=== PATIENT | female | born 1960 | race Caucasian/White ===

== ENCOUNTER 2017-12-06 10:12 | Emergency (ER) | payer BC ==
--- NOTE | 2017-12-06 12:24 | EDM.PDOC ---
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 Painful wt bearing. Left Feet Pain Score (Numeric/FACES): 8 - Related Data Allergies Allergy/AdvReac Type Severity Reaction Status Date / Time acetaminophen [From Vicodin] Allergy Itching Verified 12/06/17 10:34 hydrocodone [From Vicodin] Allergy Itching Verified 12/06/17 10:34 Home Meds: Home Meds . [Unable to Verify Home Med List] 12/06/17 [History] Past Medical History Cardiovascular History: Reports: High Cholesterol, Hypertension [employer] History: Reports: Musculoskeletal History: Reports: Fracture Other Musculoskeletal History: bilateral elbows and wrists Endocrine/Metabolic History: Reports: Diabetes, Type II - Infectious Disease History Infectious Disease History: Reports: Measles - Past Surgical History GI Surgical History: Reports: Appendectomy, Cholecystectomy, Colonoscopy Female Surgical History: Reports: Hysterectomy, Salpingo-Oophorectomy Social & Family History - Tobacco Use Smoking Status *Q: Never Smoker Second Hand Smoke Exposure: No - Caffeine Use Caffeine Use: Reports: Coffee, Soda, Tea - Alcohol Use Days Per Week of Alcohol Use: 0 - Recreational Drug Use Recreational Drug Use: No Review of Systems - Review of Systems Review Of Systems: ROS reveals no pertinent complaints other than HPI. ED EXAM, GENERAL - Physical Exam Exam: See Below Exam Limited By: No Limitations General Appearance: Alert, WD/WN, Mild Distress Extremities: Other (Minimal swelling left lat malleolus, tender there. NVT all intact) Course - Vital Signs Last Recorded V/S: Last Vital Signs Temp 36.3 C 12/06/17 10:40 Pulse 75 12/06/17 10:40 Resp 18 12/06/17 10:40 BP 145/79 H 12/06/17 10:40 Pulse Ox 98 12/06/17 10:40 - Orders/Labs/Meds Orders: Active Orders 24 hr Category Date Time Status Ankle Min 3V Lt [CR] Stat Exams 12/06/17 10:52 Ordered - Radiology Interpretation Free Text/Narrative:: Longitudinal fracture distal fibula visible on one view only. Non displaced Departure - Departure Time of Disposition: 12:21 Disposition: Home, Self-Care 01 Condition: Fair Clinical Impression: Left fibular fracture - Discharge Information Referrals: PCP,None [Primary Care Provider] - Additional Instructions: Wear the boot for comfort and protection. Weight bearing only if necessary. Try to keep elevated and apply ice. Followup with you doctor on Monday. Xray will be reviewed by the radiologist tomorrow. - My Orders Last 24 Hours: My Active Orders 12/06/17 10:52 Ankle Min 3V Lt [CR] Stat - Assessment/Plan Last 24 Hours: My Active Orders 12/06/17 10:52 Ankle Min 3V Lt [CR] Stat
--- NOTE | 2017-12-07 10:55 | CR ---
Ankle Min 3V Lt INDICATION: trauma COMPARISON: None FINDINGS: 3 views. Nondisplaced fracture distal fibula.
== END 2017-12-06 12:52 | disposition home or self-care (01) ==
LOC: JP.ED 10:12
DX: S82.832A Other fracture of upper and lower end of left fibula, initial encounter for closed fracture (principal); E78.00 Pure hypercholesterolemia, unspecified; I10 Essential (primary) hypertension; E11.9 Type 2 diabetes mellitus without complications; W10.9XXA Fall (on) (from) unspecified stairs and steps, initial encounter
CPT/HCPCS: 73610-26-LT; 73610-LT; 99284